=== PATIENT | male | born 1955 | race Caucasian/White ===

== ENCOUNTER 2018-11-10 12:01 | Emergency (ER) | payer SELFPAY ==
[~2018-11-10 12:01] MED LIST: AMOX-362 PO; CITA-145 PO; LISI20TA29 PO; LOR5/325 PO; METR500T15 PO; PANT40TA65 PO; PRAV40TA78 PO
--- NOTE | 2018-11-10 12:06 | ER Report ---
History and Physical Time Seen By MD: 12:02 HPI/ROS CHIEF COMPLAINT: Low back pain and sciatica HISTORY OF PRESENT ILLNESS: This is a 63-year-old male who presents to the emergency department for low back pain and sciatica. Patient states that last week, while at work he began to develop some lower back pain with some radiation down his left buttock. The pain and discomfort have now moved into the back of his left knee and into his left foot. He's had increased difficulty with ambulation. No fevers or chills. No loss of bowel or bladder, no urinary retention. No injuries. 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 REVIEW OF SYSTEMS: Respiratory: No cough, no dyspnea. Cardiovascular: No chest pain, no palpitations. Gastrointestinal: No vomiting, no abdominal pain. Musculoskeletal: As above. Allergies: Coded Allergies: No Known Drug Allergies (Unverified , 11/10/18) Home Meds Active Scripts Prednisone (PREDNISONE) 20 Mg Tablet, 20 MG PO BID, #10 TAB Prov:[facility] 11/10/18 Hydrocodone Bit/Acetaminophen (NORCO 5-325 TABLET) 1 Each Tablet, 1 EACH PO Q4- 6H PRN for PAIN, #8 TAB Prov:[facility] 11/10/18 Cyclobenzaprine Hcl (CYCLOBENZAPRINE HCL) 10 Mg Tablet, 5-10 MG PO TID PRN for MUSCLE SPASMS, #12 TAB Prov:[facility] 11/10/18 Reported Medications Tramadol Hcl (TRAMADOL HCL) 50 Mg Tablet, 50-100 MG PO Q4-6H, TAB 11/10/18 Discontinued Reported Medications Pravastatin Sodium (PRAVASTATIN SODIUM) 40 Mg Tablet, 40 MG PO QDAY 01/30/14 Citalopram Hydrobromide (CITALOPRAM HBR) 20 Mg Tablet, 20 MG PO QDAY, #5 TAB TAKE 1 TABLET BY MOUTH EVERY DAY 01/30/14 Lisinopril (LISINOPRIL) 20 Mg Tablet, 20 MG PO QDAY 01/30/14 Discontinued Scripts Hydrocodone Bit/Acetaminophen (HYDROCODON-ACETAMINOPHEN 5-325) 1 Each Tablet, 1 EACH PO Q4-6H for PAIN, #12 TAKE ONE TABLET BY MOUTH EVERY 4-6 HOURS NEEDED FOR PAIN Prov:CHIP HILL MD 01/30/14 Pantoprazole Sodium (PANTOPRAZOLE SODIUM) 40 Mg Tablet.dr, 40 MG PO QDAY, #30 TAB.SR Prov:CHIP HILL MD 01/30/14 Metronidazole (METRONIDAZOLE) 500 Mg Tablet, 500 MG PO BID, #20 Prov:CHIP HILL MD 01/30/14 Amoxicillin (AMOXICILLIN) 500 Mg Capsule, 1 CAP PO Q8H, #30 CAPSULE TAKE ONE CAPSULE BY MOUTH EVERY 8 HOURS Prov:CHIP HILL MD 01/30/14 Past Medical/Surgical History Patient has a past medical surgical history of hypercholesterolemia, gastric ulcers with surgery, appendectomy, testicular surgery. Reviewed Nurses Notes: Yes Hx Smoking: Yes (1 -2 ppd) Smoking Status: Current: Every Day Smoker Hx Substance Use Disorder: No Hx Alcohol Use: Yes (6 pack daily) Constitutional Vital Sign - Last 24 Hours 11/10/18 11/10/18 12:04 12:30 Temp 98.9 Pulse 88 78 Resp 18 B/P (MAP) 162/95 132/78 (96) Pulse Ox 95 93 O2 Delivery Room Air Physical Exam General Appearance: The patient is alert, has no immediate need for airway protection and no current signs of toxicity. Eyes: Pupils equal and round no injection. Respiratory: Chest is non tender, lungs are clear to auscultation. Cardiac: regular rate and rhythm. Gastrointestinal: Abdomen is soft and non tender, no masses, bowel sounds normal. Musculoskeletal: Neck: Neck is supple and non tender. Lower back muscle tightness on the left side, pain increased to the left lower back with straight leg raise. Extremities have full range of motion and are non tender. Skin: No rashes or lesions. DIFFERENTIAL DIAGNOSIS: After history and physical exam differential diagnosis was considered for sciatica, cauda equina syndrome, spinal abscess. Medical Decision Making ED Course/Re-evaluation ED Course The patient was admitted to a room. A history and physical obtained. D ifferential diagnoses were considered. 60 mg IM Norflex were given, 40 mg by mouth prednisone. Patient was given a prescription for prednisone, hydrocodone and Flexeril, he was also given a prescription for physical therapy. They're instructed to follow-up with her primary care provider if no improvement or follow-up with [facility], he had no other questions or concerns at this time and discharged home. Decision to Disposition Date: Nov 10, 2018 Decision to Disposition Time: 12:38 Depart Departure Latest Vital Signs Vital Signs Date Time Temp Pulse Resp B/P (MAP) Pulse Ox O2 Delivery O2 Flow Rate FiO2 11/10/18 12:30 78 132/78 (96) 93 11/10/18 12:04 98.9 18 Room Air Impression: Primary Impression: Left-sided low back pain with sciatica Condition: Improved Disposition: HOME OR SELF-CARE Referrals: AYO FREIRE MD (PCP) New Scripts Prednisone (PREDNISONE) 20 Mg Tablet 20 MG PO BID, #10 TAB Prov: [facility] 11/10/18 Hydrocodone Bit/Acetaminophen (NORCO 5-325 TABLET) 1 Each Tablet 1 EACH PO Q4-6H PRN for PAIN, #8 TAB Prov: [facility] 11/10/18 Cyclobenzaprine Hcl (CYCLOBENZAPRINE HCL) 10 Mg Tablet 5-10 MG PO TID PRN for MUSCLE SPASMS, #12 TAB Prov: [facility] 11/10/18 Patient Instructions: Acute Low Back Pain (ED), Sciatica (ED) Additional Instructions: Be sure to take the medications as directed. If the pain persists, I would also recommend physical therapy. Be cautious when taking muscle relaxers and narcotics, they can cause severe drowsiness, no drinking alcohol or driving while taking the medications. Drink plenty of water. If no improvement within one week, I would recommend follow up with your PCP or [facility]. Return to the ED for any other concerns or worsening symptoms. Problem Qualifiers Primary Impression: Left-sided low back pain with sciatica Chronicity: acute Sciatica laterality: sciatica of left side Qualified Codes: M54.42 - Lumbago with sciatica, left side [facility] Nov 10, 2018 12:06
[2018-11-10] MEDS ORDERED: TRAM-420 PO (12:07)
[2018-11-10 12:30] VITALS: BP 132/78
[2018-11-10] MEDS ORDERED: predniSONE 20 MG TAB PO ONE (12:30)
[2018-11-10] MEDS ORDERED: ORPHENADRINE 60MG/2ML INJ IM ONE (12:30)
[2018-11-10] MEDS ORDERED: HYDR-653 PO (12:43)
[2018-11-10] MEDS ORDERED: PRED20TA6 PO (12:43)
[2018-11-10] MEDS ORDERED: CYCL10TA29 PO (12:43)
== END 2018-11-10 12:52 | disposition home or self-care (01) ==
LOC: ER 12:03
DX: M54.42 Lumbago with sciatica, left side (principal)
CPT/HCPCS: 96372; 99283; J2360; J7512